=== PATIENT | female | born 1990 | race Caucasian/White ===

== ENCOUNTER 2017-04-28 13:16 | Inpatient (IN) | payer BC, OTHER ==
[~2017-04-28] VITALS: Ht 162.6 cm; Wt 49.9 kg
[2017-04-28 17:50] VITALS: BP 130/74
[2017-04-28 18:55] LABS: BASOPHILS # (AUTO) 0.1 K/uL (0.0-8.0); BASOPHILS % (AUTO) 0.5 % (0.0-2.0); EOSINOPHILS # (AUTO) 0.1 K/uL (0.0-0.7); EOSINOPHILS % (AUTO) 0.6 % (0.0-7.0); HEMATOCRIT 39.1 % (37-47); HEMOGLOBIN 13.1 G/DL (12.0-16.0); LYMPHOCYTES # (AUTO) 1.9 K/UL (0.8-4.8); LYMPHOCYTES % (AUTO) 17.2 % (20.5-51.5); MEAN CORPUSCULAR HEMOGLOBIN 29.5 UUG (27.0-31.0); MEAN CORPUSCULAR HGB CONC 33 g/dL (32.0-37.0); MEAN CORPUSCULAR VOLUME 88.3 FL (81.0-99.0); MONOCYTES # (AUTO) 0.4 K/UL (0.1-1.30); MONOCYTES % (AUTO) 3.8 % (0.0-11.0); NEUTROPHILS # (AUTO) 8.6 K/UL (1.8-8.9); NEUTROPHILS % (AUTO) 77.9 % (38.5-71.5); PLATELET COUNT (AUTO) 388 K/UL (150-450); RED BLOOD CELL COUNT(AUTO) 4.43 MIL/UL (4.2-5.4); WHITE BLOOD COUNT (AUTO) 11.1 K/UL (4.0-11.2)
[2017-04-28 19:00] LABS: ETHANOL < 3 MG/DL (0-0)
[2017-04-28 19:04] LABS: ALANINE AMINOTRANSFERASE 23 U/L (14-59); ALKALINE PHOSPHATASE 87 U/L (50-136); ASPARTATE AMINOTRANSFERASE 19 U/L (15-37); BILIRUBIN,TOTAL 0.8 mg/dL (0.2-1.0); CARBON DIOXIDE 28 mmol/L (21-32); CHLORIDE 101 mmol/L (98-107); CREATININE 0.8 mg/dL (0.6-1.3); GLUCOSE 137 mg/dL (74-106); MAGNESIUM 2.1 mg/dL (1.8-2.4); POTASSIUM 3.5 mmol/L (3.5-5.1); TOTAL PROTEIN, SERUM 7.7 g/dL (6.4-8.2); UREA NITROGEN, BLOOD 12 mg/dL (7-18)
[2017-04-28 20:00] VITALS: BP 107/76
[2017-04-28 20:45] LABS: *AMPHETAMINE, URINE POSITIVE (NEGATIVE); *BARBITURATE, URINE NEGATIVE (NEGATIVE); *CANNABINOID, URINE NEGATIVE (NEGATIVE); *COCCAINE, URINE POSITIVE (NEGATIVE); *OPIATE, URINE POSITIVE (NEGATIVE); *PHENCYCLIDINE SCREEN,URINE NEGATIVE (NEGATIVE)
[2017-04-28 20:48] LABS: *URINE HCG, QUAL NEGATIVE (NEGATIVE)
[2017-04-29 04:00] VITALS: BP 92/60
[2017-04-29 08:00] VITALS: BP 101/62
[2017-04-29 12:00] VITALS: BP 97/66
[2017-04-29 16:00] VITALS: BP 100/70
[2017-04-29 20:00] VITALS: BP 109/67
[2017-04-30 03:27] VITALS: BP 118/72
[2017-04-30 04:00] VITALS: BP 103/72
[2017-04-30 06:05] LABS: HEPATITIS B SURFACE AG Negative (Negative)
[2017-04-30 08:00] VITALS: BP 104/62
[2017-04-30 12:00] VITALS: BP 109/65
[2017-04-30 16:00] VITALS: BP 106/63
[2017-04-30 20:30] VITALS: BP 98/62
[2017-05-01 08:00] VITALS: BP 103/67
[2017-05-01 13:00] VITALS: BP 103/68
[2017-05-01 16:00] VITALS: BP 103/68
[2017-05-01 16:48] LABS: *AMPHETAMINE, URINE NEGATIVE (NEGATIVE); *BARBITURATE, URINE NEGATIVE (NEGATIVE); *CANNABINOID, URINE NEGATIVE (NEGATIVE); *COCCAINE, URINE NEGATIVE (NEGATIVE); *OPIATE, URINE POSITIVE (NEGATIVE); *PHENCYCLIDINE SCREEN,URINE NEGATIVE (NEGATIVE)
[2017-05-01 20:00] VITALS: BP 119/96
[2017-05-02 08:00] VITALS: BP 112/68
[2017-05-02 12:00] VITALS: BP 118/70
[2017-05-02 16:00] VITALS: BP 116/78
[2017-05-02] MEDS ORDERED: CEPH500C2 PO (17:39)
[2017-05-02] MEDS ORDERED: DICY20TA28 PO (17:39)
[2017-05-02] MEDS ORDERED: MIRT15TA7 PO (17:39)
[2017-05-02] MEDS ORDERED: HYDR-3895 PO (17:39)
[2017-05-02] MEDS ORDERED: BACL10TA PO (17:39)
[2017-05-02] MEDS ORDERED: DIPH50CA37 PO (17:39)
[2017-05-02] MEDS ORDERED: BUSP5TAB3 PO (17:39)
[2017-05-02] MEDS ORDERED: LACT1CAP57 PO (17:39)
[2017-05-02] MEDS ORDERED: IBUP-1955 PO (17:39)
[2017-05-02] MEDS ORDERED: ARIP2TAB3 PO (17:39)
[2017-05-02] MEDS ORDERED: GABA-536 PO ×2 (17:39)
[2017-05-02 20:00] VITALS: BP 133/73
[2017-05-03 04:00] VITALS: BP 109/74
[2017-05-03 08:04] VITALS: BP 110/83
== END 2017-05-03 09:31 | disposition other institution (70) | DRG 895 ==
LOC: SRC 16:55
PROVIDERS: ADMIT Internal Medicine; ATTEND Internal Medicine
PROC: HZ2ZZZZ Detoxification Services for Substance Abuse Treatment (ICD-10-PCS; principal; 2017-04-28)
PROC: HZ31ZZZ Individual Counseling for Substance Abuse Treatment, Behavioral (ICD-10-PCS; 2017-05-01)
PROC: HZ41ZZZ Group Counseling for Substance Abuse Treatment, Behavioral (ICD-10-PCS; 2017-05-02)
DX: F11.23 Opioid dependence with withdrawal (principal); F31.32 Bipolar disorder, current episode depressed, moderate; F10.20 Alcohol dependence, uncomplicated; Y90.9 Presence of alcohol in blood, level not specified; F12.90 Cannabis use, unspecified, uncomplicated; F14.10 Cocaine abuse, uncomplicated; F13.10 Sedative, hypnotic or anxiolytic abuse, uncomplicated; F15.10 Other stimulant abuse, uncomplicated; E86.0 Dehydration; R55 Syncope and collapse; S00-T88 Injury, poisoning and certain other consequences of external causes; L08.9 Local infection of the skin and subcutaneous tissue, unspecified; X78.8XXS Intentional self-harm by other sharp object, sequela; Z91.89 Other specified personal risk factors, not elsewhere classified; Z86.69 Personal history of other diseases of the nervous system and sense organs; F17.210 Nicotine dependence, cigarettes, uncomplicated; F41.0 Panic disorder [episodic paroxysmal anxiety]; F60.3 Borderline personality disorder
CPT/HCPCS: 36415; 70030-TC; 80307; 80324; 80346; 80353; 80361; 83735; 84703; 85025; 86580; 86592; 86705; 86803; 87340; 87806; A4663; G0480; J7030; Q0163